=== PATIENT | female | born 1955 | race Caucasian/White ===

== ENCOUNTER 2017-11-02 09:24 | Day surgery (SDC) | payer BC ==
[~2017-11-02] VITALS: Ht 154.9 cm; Wt 89.8 kg
[~2017-11-02 09:24] MED LIST: ESTR10TA VG; EZET10 PO; OMEP40CA37 PO; SODIUM CHLORIDE 0.9% 1000ML 1,000 ML IV ONE; THYROXINE PO
[2017-11-02 10:23] VITALS: BP 134/65
[2017-11-02] MEDS ORDERED: MEPERIDINE-PF 50 MG/ML SYG ONE (11:07)
[2017-11-02] MEDS ORDERED: MIDAZOLAM HCL 1 MG/ML 2ML VIAL ONE (11:08)
[2017-11-02 11:30] VITALS: BP 107/65
== END 2017-11-02 12:00 | disposition home or self-care (01) ==
LOC: DAH 09:24
PROVIDERS: ATTEND Internal Medicine Gastroenterology
DX: Z12.11 Encounter for screening for malignant neoplasm of colon (principal); D12.4 Benign neoplasm of descending colon; K57.30 Diverticulosis of large intestine without perforation or abscess without bleeding; E78.5 Hyperlipidemia, unspecified; K21.9 Gastro-esophageal reflux disease without esophagitis; E03.9 Hypothyroidism, unspecified; Z90.710 Acquired absence of both cervix and uterus; Z98.890 Other specified postprocedural states; Z88.8 Allergy status to other drugs, medicaments and biological substances
CPT/HCPCS: 45380; 88305; 99156; A4606; J2175; J2250; J7030

== ENCOUNTER 2019-04-08 20:30 | Emergency (ER) | payer BC ==
[~2019-04-08 20:30] MED LIST changes: -SODIUM CHLORIDE 0.9% 1000ML 1,000 ML IV ONE
== END 2019-04-08 21:06 | disposition home or self-care (01) ==
LOC: EDH 20:30
DX: B02.9 Zoster without complications (principal); Z88.6 Allergy status to analgesic agent; E07.9 Disorder of thyroid, unspecified

== ENCOUNTER → 2020-10-29 | Outpatient (CLI) | payer OTHER ==
[~2020-10-29] MED LIST changes: -EZET10 PO; +EZET10TA13 PO; +OMEP40CA13 PO; -OMEP40CA37 PO
== END | disposition home or self-care (01) ==
LOC: RAH 14:19
PROVIDERS: ATTEND Family Medicine
DX: Z13.6 Encounter for screening for cardiovascular disorders (principal)
CPT/HCPCS: 75571